=== PATIENT | male | born 1965 | race Caucasian/White ===

== ENCOUNTER 2019-12-11 13:51 | Inpatient (IN) | payer MEDICAID ==
--- NOTE | 2019-12-11 14:39 | XRAY Report ---
PROCEDURE: Chest 1 View X-Ray INDICATIONS: Chest pain TECHNIQUE: One view of the chest was acquired. COMPARISON: None FINDINGS: Surgical changes and devices: None. Lungs and pleura: No pleural effusions or pneumothorax. Lungs are clear. Mediastinum: Mediastinal contours appear normal. Heart size is normal. Bones and chest wall: No suspicious bony lesions. Overlying soft tissues appear unremarkable. IMPRESSION: No acute cardiopulmonary process demonstrated radiographically. Reviewed by: Scott Quinteros MD on 12/11/2019 2:37 PM PDT Approved by: Scott Quinteros MD on 12/11/2019 2:37 PM PDT Station ID: [id number]
[2019-12-11 14:57] LABS: BASOPHILS % (AUTO) 0.5 %; EOSINOPHILS # (AUTO) 0.2 10^3/uL (0.0-0.7); EOSINOPHILS % (AUTO) 1.9 %; HGB - HEMOGLOBIN 15.4 g/dL (14.0-18.0); LYMPHOCYTES # (AUTO) 1.5 10^3/uL (1.5-3.5); LYMPHOCYTES % (AUTO) 18.4 %; MEAN CORPUSCULAR HEMOGLOBIN 30.6 pg (27.0-31.0); MEAN CORPUSCULAR HGB CONC 35.2 g/dL (32.0-36.0); MEAN CORPUSCULAR VOLUME 86.9 fL (80.0-94.0); MEAN PLATELET VOLUME 10.7 fL (7.4-11.4); MONOCYTES # (AUTO) 0.9 10^3/uL (0.0-1.0); MONOCYTES % (AUTO) 10.8 %; NEUTROPHILS # (AUTO) 5.4 10^3/uL (1.5-6.6); PLT - PLATELET COUNT 310 10^3/uL (130-450); RED BLOOD COUNT 5.04 10^6/uL (4.70-6.10); RED CELL DISTRIBUTION WIDTH 11.9 % (12.0-15.0)
[2019-12-11 14:59] LABS: ALBUMIN 4.6 g/dL (3.2-5.5); ALBUMIN/GLOBULIN RATIO 1.4 (1.0-2.2); BILIRUBIN,TOTAL 0.9 mg/dL (0.2-1.0); CALCIUM 9.7 mg/dL (8.5-10.3); CREATININE 1.1 mg/dL (0.6-1.2)
[2019-12-11] MEDS ORDERED: ONDANSETRON 4 MG/2 ML VIAL IVP STA (15:05)
[2019-12-11] MEDS ORDERED: HYDROmorphone 1 MG/ML CARPUJECT IVP STA (15:05)
--- NOTE | 2019-12-11 15:15 | ED Physician Documentation ---
History of Present Illness - Stated complaint Stated Complaint: CP,FACE/HANDS NUMB,ABD PX - Chief complaint Chief Complaint: Cardiac - History of Present Illness Timing: Prior to arrival - Additonal information Additional information: 54-year-old male presents to the emergency department in extreme anguish. He reports that he developed sudden onset chest pain about 1130. It began at rest. He states that it is now in his abdomen. He is writhing in the bed and crying due to the pain. He has no history of similar. He denies a history of hypertension or tobacco or alcohol use. He denies any cardiac history, denies taking any medications prescribed by provider Review of Systems Constitutional: reports: Reviewed and negative Cardiac: reports: Chest pain / pressure GI: reports: Abdominal Pain, Nausea. denies: Constipation, Diarrhea, Hematemesis, Bloody / black stool : reports: Reviewed and negative Skin: reports: Reviewed and negative Musculoskeletal: reports: Reviewed and negative PD PAST MEDICAL HISTORY - Past Medical History Past Medical History: No - Past Surgical History Past Surgical History: Yes - Allergies Allergies/Adverse Reactions: Allergies Allergy/AdvReac Type Severity Reaction Status Date / Time No Known Drug Allergies Allergy Verified 12/11/19 14:01 - Social History Does the pt smoke?: No Smoking Status: Never smoker Does the pt drink ETOH?: No Does the pt have substance abuse?: Yes Substance Use and Type: Marijuana - Immunizations Immunizations are current?: No - POLST Patient has POLST: No PD ED PE EXPANDED - General General: Alert, In Pain, In distress - Neck Neck: Supple w/out meningeal sx, No tenderness - Cardiac Cardiac: Luc, Radial strong equal, Pedal strong equal, Cap refill < 2 sec. No: Murmur Present - Respiratory Respiratory: Clear to ausultation severiano. No: Distress, Labored - Abdomen Abdomen: Tender to palpation, Generalized/diffuse (Generally diffuse abdominal tenderness without guarding. Mild rebound) - Extremities Extremities: Normal - Neuro Neuro: Alert and Oriented X 3, CNII-XII intact, Normal finger nose, Normal speech - GCS Eye Opening: Spontaneous Motor: Obeys Commands Verbal: Oriented Total: 15 Results - Vitals Vitals: Vital Signs - 24 hr 12/11/19 12/11/19 12/11/19 13:54 14:32 15:50 Temperature 36.4 C L 36.4 C L Heart Rate 44 L 78 39 L Respiratory 20 18 10 L Rate Blood Pressure 138/108 H 164/102 H 179/94 H O2 Saturation 100 100 100 12/11/19 12/11/19 12/11/19 15:55 16:09 16:34 Temperature 36.5 C Heart Rate 37 L 40 L 40 L Respiratory 14 12 15 Rate Blood Pressure 199/107 H 182/90 H 202/101 H O2 Saturation 99 100 99 12/11/19 12/11/19 12/11/19 16:46 16:51 16:56 Temperature Heart Rate 39 L 45 L 40 L Respiratory 14 12 Rate Blood Pressure 205/100 H 193/115 H 211/102 H O2 Saturation 100 100 12/11/19 12/11/19 12/11/19 17:05 17:20 17:35 Temperature Heart Rate 40 L 40 L 42 L Respiratory Rate Blood Pressure 177/96 H 178/96 H 160/92 H O2 Saturation Oxygen O2 Source Nasal cannula - EKG (time done) 1411 Rate: Rate (enter#) (41) Rhythm: Sinus bradycardia [place]: Normal Intervals: Normal PA QRS: Normal Ischemia: Normal ST segments Compare to prior EKG: Old EKG unavailable Computer interpretation: Agree with computer - Labs Labs: Laboratory Tests 12/11/19 12/11/19 12/11/19 14:36 14:36 14:36 WBC 8.0 RBC 5.04 Hgb 15.4 Hct 43.8 MCV 86.9 MCH 30.6 MCHC 35.2 RDW 11.9 L Plt Count 310 MPV 10.7 Neut # (Auto) 5.4 Lymph # (Auto) 1.5 [place] # (Auto) 0.9 Eos # (Auto) 0.2 Baso # (Auto) 0.0 Absolute Nucleated RBC 0.00 Nucleated RBC % 0.0 Sodium 138 Potassium 3.5 Chloride 103 Carbon Dioxide 23 Anion Gap 12.0 BUN 16 Creatinine 1.1 Estimated GFR (MDRD) 70 L Glucose 129 H Lactic Acid Calcium 9.7 Total Bilirubin 0.9 AST 28 ALT 25 Alkaline Phosphatase 55 Troponin I High Sens 4.7 Total Protein 8.0 Albumin 4.6 Globulin 3.4 Albumin/Globulin Ratio 1.4 Lipase 28 12/11/19 12/11/19 16:03 16:03 WBC RBC Hgb Hct MCV MCH MCHC RDW Plt Count MPV Neut # (Auto) Lymph # (Auto) [place] # (Auto) Eos # (Auto) Baso # (Auto) Absolute Nucleated RBC Nucleated RBC % Sodium Potassium Chloride Carbon Dioxide Anion Gap BUN Creatinine Estimated GFR (MDRD) Glucose Lactic Acid 1.5 Calcium Total Bilirubin AST ALT Alkaline Phosphatase Troponin I High Sens 4.8 Total Protein Albumin Globulin Albumin/Globulin Ratio Lipase - Rads (name of study) CT chest/angio Radiology: Final report received (No evidence of pulmonary embolism or acute finding in the chest) CT abd/pelvis Radiology: Final report received (Distended gastric lumen which could represent low-grade gastroparesis. No gross gastric wall thickening. Questionable mild transverse descending colon wall thickening which may be due to under distention . Low-grade colitis not excluded. No abscess collection free fluid or air.) PD MEDICAL DECISION MAKING - ED course Complexity details: reviewed old records, reviewed results, considered differential, d/w patient, d/w internet consultant (Claudy ) ED course: This is an acutely ill 54-year-old male that presents with sudden onset chest/epigastric abdominal pain. When he presented to the emergency department he was noted to be initially bradycardic with heart rate in the 40s. Initial concern at presentation was for aortic dissection. CT angios the chest did not show any acute findings within the chest. Reassuringly his blood count and serum chemistries were all essentially normal. His EKG remained bradycardic without any ischemic changes. 2 high-sensitivity troponins were negative. His lactic acid was not elevated. CT of the abdomen showed a very fluid-filled distended stomach. These findings were discussed with Dr. Loco of surgery. He feels it the sudden onset of the pain likely represents biliary colic. An abdominal ultrasound is pending. However he could not take the patient to surgery until the hypertension and bradycardia are addressed therefore he requests medical admission to the hospital. I have spoken with the day hospitalist Dr. Vazquez who agrees to see and evaluate the patient. Departure - Departure Disposition: ED Place in Observation Clinical Impression: Epigastric pain, Bradycardia Hypertension Qualifiers: Hypertension type: unspecified Qualified Code(s): I10 - Essential (primary) hypertension
[2019-12-11] MEDS ORDERED: IOVERSOL 320 100 ML VIAL IVP ONE ×2 (15:16→17:49)
--- NOTE | 2019-12-11 15:57 | CT Report ---
PROCEDURE: ANGIO CHEST W/WO INDICATIONS: Acute onset chest pain which radiates to the back CONTRAST: IV CONTRAST: Optiray 320 ml: 100 PO CONTRAST: *NO PO CONTRAST TECHNIQUE: After the administration of intravenous contrast, 2 mm thick sections acquired from the pulmonary api odilia to the posterior costophrenic angles. 3-dimensional maximum intensity projection (MIP) coronal a nd sagittal reformats were then acquired through the thorax. For radiation dose reduction, the follow ing was used: automated exposure control, adjustment of mA and/or kV according to patient size. COMPARISON: None FINDINGS: Image quality: Limited due to motion artifact and suboptimal contrast bolus timing. Pulmonary arteries: No central pulmonary filling defect identified. Normal caliber main pulmonary kei nk. Lungs and pleura: Respiratory motion artifact limits detailed evaluation of the lung parenchyma. No c onsolidation. No significant pleural abnormality. Mediastinum: Normal heart size. No pericardial effusion. No findings of right heart strain. Thoracic aorta is unremarkable. No threshold enlarged mediastinal or hilar lymph node. Bones and chest wall: No suspicious lytic or blastic osseous lesion. Partially visualized thyroid is within normal limits. No threshold and large supraclavicular or axillary lymph node. IMPRESSION: No evidence of pulmonary embolism or other acute finding in the chest. Reviewed by: Scott Quinteros MD on 12/11/2019 3:55 PM PDT Approved by: Scott Quinteros MD on 12/11/2019 3:55 PM PDT Station ID: [id number]
--- NOTE | 2019-12-11 16:03 | CT Report ---
PROCEDURE: Abdomen/Pelvis W INDICATIONS: acute chest abdominal pain CONTRAST: IV CONTRAST: Optiray 320 ml: 100 PO CONTRAST: *NO PO CONTRAST TECHNIQUE: After the administration of IV contrast, 5 mm thick sections acquired from the diaphragms to the symp hysis. 5 mm thick coronal and sagittal reformats were acquired. For radiation dose reduction, the f ollowing was used: automated exposure control, adjustment of mA and/or kV according to patient size. COMPARISON: None. FINDINGS: Image quality: Excellent. ABDOMEN: Lung bases: Bibasilar dependent atelectasis are noted posteriorly. Heart size is normal. Solid organs: Liver and spleen are normal in size and enhancement. Gallbladder is within normal marte its Biliary system is non dilated. Pancreas enhances normally. No adrenal nodules. Kidneys demons trate normal size and enhancement, without hydronephrosis. Peritoneum and bowel: There is a small hiatal hernia. Fluid distended gastric lumen is seen. No gross gastric wall thickening. No gross small bowel wall thickening. There is suggestion of mild wall thic kening involving transverse colon and proximal to mid descending colon concerning for low-grade colit is. Colonic diverticulosis is seen, no CT evidence of acute diverticulitis. No free fluid or free air .. Nodes and vessels: No retroperitoneal or mesenteric adenopathy by size criteria. Aorta and inferior vena cava are normal in size. Miscellaneous: No ventral hernias. PELVIS: Genitourinary: Bladder wall thickness is normal. Miscellaneous: No inguinal hernias or adenopathy. Bones: No suspicious bony lesions. No vertebral body compression fractures. IMPRESSION: 1. Fluid distended gastric lumen, which could represent low-grade gastroparesis. No gross gastric wal l thickening or discrete gastric wall mass. 2. Questionable mild transverse and descending colon wall thickening, which may be due to under diste ntion. Low-grade colitis cannot be excluded. No abscess collection. No free fluid or free air. Coloni c diverticulosis without evidence of acute diverticulitis. 3. No renal stone or hydronephrosis. Reviewed by: Ezekiel Singer MD on 12/11/2019 4:02 PM PDT Approved by: Ezekiel Singer MD on 12/11/2019 4:02 PM PDT Station ID: [id number]
[2019-12-11] MEDS ORDERED: ENALAPRILAT 1.25 MG/ML VIAL IVP STA (16:31)
--- NOTE | 2019-12-11 18:05 | HISTORY & PHYSICAL EXAMINATION ---
Chief Complaint - Chief Complaint Chief Complaint: severe epigastric pain earlier today Abdominal Pain HPI - History Obtained From History obtained from: Patient Exam limitations: No limitations - History of Present Illness Severity at the worst: Severe Pain Quality: Aching, Other (pressure) Context-Pain started w/: Rest Timing: Abrupt onset Duration: Hours: (better after a few hours and pain medication. not resolved) Associated symptoms: Other (he denies nausea) Social & Family Hx - Social History Does the pt smoke?: No Smoking Status: Never smoker Does the pt drink ETOH?: No Does the pt have substance abuse?: Yes Substance Use and Type: Marijuana - POLST Patient has POLST: No Meds/Allgy - Allergies Allergies/Adverse Reactions: Allergies Allergy/AdvReac Type Severity Reaction Status Date / Time No Known Drug Allergies Allergy Verified 12/11/19 14:01 Review of Systems - Constitutional Constitutional: reports: Fatigue - Other Findings Other Findings: he states he never sees a doctor, not for 40 years and until this afternoon he had been well 10 pt ros otherwise unremarkable Exam - Vital Signs Reviewed Vital Signs: Yes Vital Signs: Vital Signs x48h Temp Pulse Resp BP Pulse Ox 12/11/19 17:35 42 L 160/92 H 12/11/19 17:20 40 L 178/96 H 12/11/19 17:05 40 L 177/96 H 12/11/19 16:56 40 L 211/102 H 12/11/19 16:51 45 L 12 193/115 H 100 12/11/19 16:46 39 L 14 205/100 H 100 12/11/19 16:34 40 L 15 202/101 H 99 12/11/19 16:09 36.5 C 40 L 12 182/90 H 100 12/11/19 15:55 37 L 14 199/107 H 99 12/11/19 15:50 39 L 10 L 179/94 H 100 12/11/19 14:32 36.4 C L 78 18 164/102 H 100 12/11/19 13:54 36.4 C L 44 L 20 138/108 H 100 - Physical Exam General Appearance: positive: No acute distress, Alert Eyes Bilateral: positive: Normal inspection, PERRL, EOMI, No scleral icterus ENT: positive: No signs of dehydration Neck: positive: No JVD Respiratory: positive: No respiratory distress Cardiovascular: positive: Bradycardia (into the 30's) Abdomen: positive: Non-tender, No distention Neurologic/Psychiatric: positive: Oriented x3 Results - Lab Results Fish Bones: 12/11/19 14:36 12/11/19 14:36 Other Lab Results: Lab Results x24hrs 12/11/19 12/11/19 12/11/19 Range/Units 16:03 16:03 14:36 WBC (4.8-10.8) x10^3/uL RBC (4.70-6.10) 10^6/uL Hgb (14.0-18.0) g/dL Hct (42.0-52.0) % MCV (80.0-94.0) fL MCH (27.0-31.0) pg MCHC (32.0-36.0) g/dL RDW (12.0-15.0) % Plt Count (130-450) 10^3/uL MPV (7.4-11.4) fL Neut # (Auto) (1.5-6.6) 10^3/uL Lymph # (Auto) (1.5-3.5) 10^3/uL [place] # (Auto) (0.0-1.0) 10^3/uL Eos # (Auto) (0.0-0.7) 10^3/uL Baso # (Auto) (0.0-0.1) 10^3/uL Absolute Nucleated RBC x10^3/uL Nucleated RBC % /100WBC Sodium (135-145) mmol/L Potassium (3.5-5.0) mmol/L Chloride (101-111) mmol/L Carbon Dioxide (21-32) mmol/L Anion Gap (6-13) BUN (6-20) mg/dL Creatinine (0.6-1.2) mg/dL Estimated GFR (MDRD) (>89) Glucose (70-100) mg/dL Lactic Acid 1.5 (0.5-2.2) mmol/L Calcium (8.5-10.3) mg/dL Total Bilirubin (0.2-1.0) mg/dL AST (10-42) IU/L ALT (10-60) IU/L Alkaline Phosphatase (42-121) IU/L Troponin I High Sens 4.8 4.7 (2.3-19.7) ng/L Total Protein (6.7-8.2) g/dL Albumin (3.2-5.5) g/dL Globulin (2.1-4.2) g/dL Albumin/Globulin Ratio (1.0-2.2) Lipase (22-51) U/L 12/11/19 12/11/19 Range/Units 14:36 14:36 WBC 8.0 (4.8-10.8) x10^3/uL RBC 5.04 (4.70-6.10) 10^6/uL Hgb 15.4 (14.0-18.0) g/dL Hct 43.8 (42.0-52.0) % MCV 86.9 (80.0-94.0) fL MCH 30.6 (27.0-31.0) pg MCHC 35.2 (32.0-36.0) g/dL RDW 11.9 L (12.0-15.0) % Plt Count 310 (130-450) 10^3/uL MPV 10.7 (7.4-11.4) fL Neut # (Auto) 5.4 (1.5-6.6) 10^3/uL Lymph # (Auto) 1.5 (1.5-3.5) 10^3/uL [place] # (Auto) 0.9 (0.0-1.0) 10^3/uL Eos # (Auto) 0.2 (0.0-0.7) 10^3/uL Baso # (Auto) 0.0 (0.0-0.1) 10^3/uL Absolute Nucleated RBC 0.00 x10^3/uL Nucleated RBC % 0.0 /100WBC Sodium 138 (135-145) mmol/L Potassium 3.5 (3.5-5.0) mmol/L Chloride 103 (101-111) mmol/L Carbon Dioxide 23 (21-32) mmol/L Anion Gap 12.0 (6-13) BUN 16 (6-20) mg/dL Creatinine 1.1 (0.6-1.2) mg/dL Estimated GFR (MDRD) 70 L (>89) Glucose 129 H (70-100) mg/dL Lactic Acid (0.5-2.2) mmol/L Calcium 9.7 (8.5-10.3) mg/dL Total Bilirubin 0.9 (0.2-1.0) mg/dL AST 28 (10-42) IU/L ALT 25 (10-60) IU/L Alkaline Phosphatase 55 (42-121) IU/L Troponin I High Sens (2.3-19.7) ng/L Total Protein 8.0 (6.7-8.2) g/dL Albumin 4.6 (3.2-5.5) g/dL Globulin 3.4 (2.1-4.2) g/dL Albumin/Globulin Ratio 1.4 (1.0-2.2) Lipase 28 (22-51) U/L - Diagnostic Imaging Results Diagnostic Imaging Results: positive: Final report reviewed, Read independently (possible non calcified gallstone no gallbladder inflammation diverticulosis without inflammation. no signs of peptic ulcer disease) Impression/Plan - Problem List Problem List: severe epigastric pain earlier today consistent with biliary cholic bradycardia into the 30's he is feeling improved. I recommend abdominal ultrasound for possible gallstones if his pain is controlled and he is able to take clears well and he is cleared by medicine he may go home He is not a surgical candidate until cleared/ worked up for his bradycardia he does not have an acute abdomen requiring urgent surgery will follow up on his ultrasound.
[2019-12-11] MEDS ORDERED: cloNIDine 0.1 MG PATCH TOP SCH (19:00)
[2019-12-11] MEDS ORDERED: ENALAPRILAT 1.25 MG/ML VIAL IVP SCH (19:00)
--- NOTE | 2019-12-11 19:41 | HISTORY & PHYSICAL EXAMINATION ---
Chief Complaint - Chief Complaint Chief Complaint: Chest pain, Abdominal pain History of Present Illness - Admitted From Admitted From:: [facility] ED - History Obtained From Records Reviewed: Yes History obtained from: Patient - History of Present Illness HPI Comment/Other: Patient is a 54-year-old male who presented to the ED with complaint of chest pain however when asked to point to the area of his pain, he points to his upper abdomen. Palpation to the area reproduces the pain. Started around 11:30 AM. He describes it as a pressure. He was just sitting around at home when the pain started. He had last eaten the night before. In the ED His blood pressure was as high as 193/84. He was also bradycardic with heart rate of 40. For concern about aortic dissection he had a CT angiogram of the chest done which did not show any acute findings within the chest. CT of the abdomen showed a very fluid filled distended stomach. This findings were discussed with Dr. Loco of general surgery. He thought the presentation likely represented biliary colic and advised for an abdominal ultrasound to be obtained. The patient also had troponins x2 done which were negative. He was given enalapril in the ED and presented for admission for further work-up and treatment. History - Past Medical History Other Past Medical History: Patient denies any medical history - Past Surgical History Other past surgical history: Patient denies any surgical history - Family & Social History Family History: Father: [place] Living Situation: Alone, With family (mother) - POLST Patient has POLST: No POLST Status: Full Code Meds/Allgy - Allergies Allergies/Adverse Reactions: Allergies Allergy/AdvReac Type Severity Reaction Status Date / Time No Known Drug Allergies Allergy Verified 12/11/19 14:01 Review of Systems - Constitutional Constitutional: denies: Fever, Chills, Malaise - Eyes Eyes: denies: Pain - Ears, Nose & Throat Ears, Nose & Throat: denies: Ear pain, Sore throat - Cardiovascular Cariovascular: denies: Irregular heart rate, Palpitations, Chest pain, Lightheadedness, Exertional dyspnea, Decr. exercise tolerance - Respiratory Respiratory: denies: Cough, Wheezing, SOB at rest, SOB with exertion - Gastrointestinal Gastrointestinal: reports: Abdominal pain. denies: Constipation, Nausea, Vomiting, Coffee grounds emesis, Reflux/heartburn - Genitourinary Genitourinary: denies: Dysuria, Frequency, Urgency, Hematuria - Musculoskeletal Musculoskeletal: denies: Muscle pain, Back pain, Muscle aches - Integumentary Integumentary: denies: Rash, Pruritis, Lesions, Dryness - Neurological Neurological: denies: General weakness, Headache, Dizziness - Psychiatric Psychiatric: denies: Depression, Anxiety - Endocrine Endocrine: denies: Polyuria, Polydypsia - Hematologic/Lymphatic Hematologic/Lymphatic: denies: Anemia, Bruising, Petechiae Prior Level of Functionality: Patient is independent of activities of daily living Exam - Vital Signs Vital Signs: Vital Signs x48h Temp Pulse Pulse Resp BP BP Pulse Ox 12/11/19 19:20 42 L 185/97 H 12/11/19 18:57 36.7 C 43 L 19 157/95 H 99 12/11/19 18:38 36.6 C 40 L 12 192/94 H 98 12/11/19 17:50 36.6 C 42 L 13 185/96 H 98 12/11/19 17:35 42 L 160/92 H 12/11/19 17:20 40 L 178/96 H 12/11/19 17:05 40 L 177/96 H 12/11/19 16:56 40 L 211/102 H 12/11/19 16:51 45 L 12 193/115 H 100 12/11/19 16:46 39 L 14 205/100 H 100 12/11/19 16:34 40 L 15 202/101 H 99 12/11/19 16:09 36.5 C 40 L 12 182/90 H 100 12/11/19 15:55 37 L 14 199/107 H 99 12/11/19 15:50 39 L 10 L 179/94 H 100 12/11/19 14:32 36.4 C L 78 18 164/102 H 100 12/11/19 13:54 36.4 C L 44 L 20 138/108 H 100 - Physical Exam General Appearance: positive: Alert, Moderate distress, Severe distress Eyes Bilateral: positive: PERRL, EOMI ENT: positive: Dry mucous membranes Neck: positive: No JVD, Trachea midline Respiratory: positive: Chest non-tender, No respiratory distress, Breath sounds nml. negative: Wheezes, Rales, Rhonchi Cardiovascular: positive: Bradycardia Abdomen: positive: No organomegaly, Nml bowel sounds, No distention, Tenderness, Guarding Back: positive: Nml inspection Skin: positive: Color nml, No rash, Warm, Dry Extremities: positive: Non-tender, Full ROM, Nml appearance, No pedal edema Neurologic/Psychiatric: positive: Oriented x3, Motor nml Conclusion/Plan - Problem List (1) Cholecystitis Conclusion/Plan: Abdominal ultrasound showed stones in the gallbladder and some pericholecystic fluid. Patient is n.p.o. except for meds, ice chips and sips. Pain management with oxycodone and morphine as needed. IV hydration with normal saline. Dr. Loco with general surgery is on consult. (2) Hypertension Conclusion/Plan: Uncontrolled. This could also be elevated by pain related to cholecystitis. Patient has a 0.1 mg clonidine patch on. Enalaprilat 1.25 mg IV every 6 hours ordered. Qualifiers: Hypertension type: unspecified Qualified Code(s): I10 - Essential (primary) hypertension (3) Bradycardia Conclusion/Plan: Etiology undetermined. Patient asymptomatic. We will continue to monitor. If needed will administer atropine. - Lab Results Fish Bones: 12/11/19 14:36 12/11/19 14:36 Core Measures - Anticipated LOS I expect patient to be DC'd or transferred within 96 hours.: Yes - DVT/VTE - Prophylaxis VTE/DVT Device ordered at admit?: Yes VTE/DVT Prophylaxis med ordered at admit?: Yes
[2019-12-11] MEDS: ENALAPRILAT 1.25 MG/ML VIAL IVP SCH (21:08)
[2019-12-11] MEDS ORDERED: MORPHINE 2 MG/ML CARPUJECT IVP PRN (21:43)
[2019-12-11] MEDS ORDERED: SODIUM CHLORIDE FLUSH 0.9% 10 ML SYRINGE IVP PRN (22:01)
[2019-12-11] MEDS ORDERED: oxyCODONE 5 MG TABLET PO PRN (22:01)
[2019-12-11] MEDS ORDERED: ONDANSETRON 4 MG/2 ML VIAL IVP PRN (22:01)
[2019-12-11] MEDS ORDERED: ACETAMINOPHEN 325 MG TABLET PO PRN (22:01)
[2019-12-11] MEDS: SODIUM CHLORIDE 0.9% 1,000 ML IV SCH (22:41)
[2019-12-12] MEDS: SODIUM CHLORIDE FLUSH 0.9% 10 ML SYRINGE IVP SCH ×2 (00:04→11:07)
[2019-12-12 01:15] LABS: MUDS CUTOFF CONCENTRATIONS CUTOFF CONC BELOW:
[2019-12-12 01:16] LABS: BILIRUBIN,URINE NEGATIVE (NEGATIVE); GLUCOSE, URINE (UA) NEGATIVE (NEGATIVE); KETONES,URINE (UA) 15 mg/dL (NEGATIVE); LEUKOCYTE ESTERASE, URINE NEGATIVE (NEGATIVE); NITRITE,URINE NEGATIVE (NEGATIVE); OCCULT BLOOD,URINE TRACE-INTA (NEGATIVE); PROTEIN,URINE NEGATIVE (NEGATIVE); UROBILINOGEN,URINE 0.2 (NORMAL) E.U./dL (NORMAL)
[2019-12-12 01:17] LABS: CLARITY,URINE CLEAR (CLEAR)
[2019-12-12 01:26] LABS: AMPHETAMINE SCREEN,URINE POSITIVE (NEGATIVE); BENZODIAZEPINES SCREEN, URINE NEGATIVE (NEGATIVE); COCAINE SCREEN URINE NEGATIVE (NEGATIVE); METHADONE SCREEN, URINE NEGATIVE (NEGATIVE); METHAMPHETAMINES SCREEN, URINE POSITIVE (NEGATIVE); OPIATE SCREEN, URINE POSITIVE (NEGATIVE); OXYCODONE SCREEN, URINE NEGATIVE (NEGATIVE); PROPOXYPHENE SCREEN, URINE NEGATIVE (NEGATIVE); TRICYCLIC ANTIDEPRESSANT,URINE NEGATIVE (NEGATIVE)
[2019-12-12] MEDS: ENALAPRILAT 1.25 MG/ML VIAL IVP SCH ×2 (03:33→11:07)
[2019-12-12] MEDS: SODIUM CHLORIDE 0.9% 1,000 ML IV SCH (05:57)
[2019-12-12 05:59] LABS: BASOPHILS % (AUTO) 0.3 %; EOSINOPHILS # (AUTO) 0.2 10^3/uL (0.0-0.7); EOSINOPHILS % (AUTO) 2.3 %; HGB - HEMOGLOBIN 14.1 g/dL (14.0-18.0); LYMPHOCYTES # (AUTO) 1.4 10^3/uL (1.5-3.5); LYMPHOCYTES % (AUTO) 13.9 %; MEAN CORPUSCULAR HEMOGLOBIN 30.8 pg (27.0-31.0); MEAN CORPUSCULAR HGB CONC 34.7 g/dL (32.0-36.0); MEAN CORPUSCULAR VOLUME 88.6 fL (80.0-94.0); MEAN PLATELET VOLUME 10.1 fL (7.4-11.4); MONOCYTES # (AUTO) 1.5 10^3/uL (0.0-1.0); MONOCYTES % (AUTO) 14.2 %; PLT - PLATELET COUNT 251 10^3/uL (130-450); RED BLOOD COUNT 4.58 10^6/uL (4.70-6.10); RED CELL DISTRIBUTION WIDTH 12.3 % (12.0-15.0); WHITE BLOOD COUNT 10.2 x10^3/uL (4.8-10.8)
[2019-12-12 06:09] LABS: CALCIUM 8.5 mg/dL (8.5-10.3); CREATININE 0.9 mg/dL (0.6-1.2)
[2019-12-12] MEDS ORDERED: PANTOPRAZOLE 40 MG VIAL IVP SCH (07:00)
[2019-12-12] MEDS ORDERED: POTASSIUM CHLOR 10 MEQ/100 ML 10 MEQ/100 ML BAG IV SCH (08:00)
--- NOTE | 2019-12-12 08:37 | PROVIDER PROGRESS NOTE ---
Subjective - Prog Note Date Prog Note Date: 12/12/19 - Subjective Pt reports feeling: Improved (he states his abdominal pain is much improved to gone. denies nausea) Objective - Vital Signs/Intake & Output Vital Signs: Vital Signs x48h Temp Pulse Pulse Resp BP Pulse Ox 12/12/19 04:15 51 L 18 135/78 H 97 12/12/19 04:00 51 L 129/80 97 12/12/19 03:45 50 L 123/74 99 12/12/19 03:42 51 L 134/76 H 12/12/19 03:37 51 L 134/79 H 12/12/19 03:32 36.4 C L 50 L 16 132/78 H 97 Intake & Output: Intake & Output 12/09/19 12/10/19 12/11/19 12/12/19 23:59 23:59 23:59 23:59 Intake Total 1000 Output Total 750 Balance 250 - Objective General Appearance: positive: No acute distress, Alert Eyes Bilateral: positive: Normal inspection, PERRL, EOMI, No scleral icterus ENT: positive: No signs of dehydration Neck: positive: No JVD Respiratory: positive: No respiratory distress Abdomen: positive: Non-tender, No distention Neurologic/Psychiatric: positive: Oriented x3 - Lab Results Fish Bones: 12/12/19 05:55 12/12/19 05:55 Other Labs: Lab Results x24hrs 12/12/19 12/12/19 12/12/19 Range/Units 05:55 05:55 05:55 WBC 10.2 (4.8-10.8) x10^3/uL RBC 4.58 L (4.70-6.10) 10^6/uL Hgb 14.1 (14.0-18.0) g/dL Hct 40.6 L (42.0-52.0) % MCV 88.6 (80.0-94.0) fL MCH 30.8 (27.0-31.0) pg MCHC 34.7 (32.0-36.0) g/dL RDW 12.3 (12.0-15.0) % Plt Count 251 (130-450) 10^3/uL MPV 10.1 (7.4-11.4) fL Neut # (Auto) 7.0 H (1.5-6.6) 10^3/uL Lymph # (Auto) 1.4 L (1.5-3.5) 10^3/uL [place] # (Auto) 1.5 H (0.0-1.0) 10^3/uL Eos # (Auto) 0.2 (0.0-0.7) 10^3/uL Baso # (Auto) 0.0 (0.0-0.1) 10^3/uL Absolute Nucleated RBC 0.00 x10^3/uL Nucleated RBC % 0.0 /100WBC Sodium 135 (135-145) mmol/L Potassium 3.3 L (3.5-5.0) mmol/L Chloride 103 (101-111) mmol/L Carbon Dioxide 25 (21-32) mmol/L Anion Gap 7.0 (6-13) BUN 9 (6-20) mg/dL Creatinine 0.9 (0.6-1.2) mg/dL Estimated GFR (MDRD) 88 L (>89) Glucose 126 H (70-100) mg/dL Lactic Acid (0.5-2.2) mmol/L Calcium 8.5 (8.5-10.3) mg/dL Total Bilirubin (0.2-1.0) mg/dL AST (10-42) IU/L ALT (10-60) IU/L Alkaline Phosphatase (42-121) IU/L Troponin I High Sens (2.3-19.7) ng/L Total Protein (6.7-8.2) g/dL Albumin (3.2-5.5) g/dL Globulin (2.1-4.2) g/dL Albumin/Globulin Ratio (1.0-2.2) Lipase (22-51) U/L TSH 0.52 (0.34-5.60) uIU/mL Urine Color Urine Clarity (CLEAR) Urine pH (5.0-7.5) PH Ur Specific [place] (1.002-1.030) Urine Protein (NEGATIVE) mg/dL Urine Glucose (UA) (NEGATIVE) mg/dL Urine Ketones (NEGATIVE) mg/dL Urine Occult Blood (NEGATIVE) Urine Nitrite (NEGATIVE) Urine Bilirubin (NEGATIVE) Urine Urobilinogen (NORMAL) E.U./dL Ur Leukocyte Esterase (NEGATIVE) Ur Microscopic Review Urine Culture Comments Urine Opiates Screen (NEGATIVE) Ur Oxycodone Screen (NEGATIVE) Urine Methadone Screen (NEGATIVE) Ur Propoxyphene Screen (NEGATIVE) Ur Barbiturates Screen (NEGATIVE) Ur Tricyclics Screen (NEGATIVE) Ur Phencyclidine Scrn (NEGATIVE) Ur Amphetamine Screen (NEGATIVE) U Methamphetamines Scrn (NEGATIVE) U Benzodiazepines Scrn (NEGATIVE) Urine Cocaine Screen (NEGATIVE) U Cannabinoids Screen (NEGATIVE) 12/12/19 12/12/19 12/12/19 Range/Units 05:55 00:15 00:15 WBC (4.8-10.8) x10^3/uL RBC (4.70-6.10) 10^6/uL Hgb (14.0-18.0) g/dL Hct (42.0-52.0) % MCV (80.0-94.0) fL MCH (27.0-31.0) pg MCHC (32.0-36.0) g/dL RDW (12.0-15.0) % Plt Count (130-450) 10^3/uL MPV (7.4-11.4) fL Neut # (Auto) (1.5-6.6) 10^3/uL Lymph # (Auto) (1.5-3.5) 10^3/uL [place] # (Auto) (0.0-1.0) 10^3/uL Eos # (Auto) (0.0-0.7) 10^3/uL Baso # (Auto) (0.0-0.1) 10^3/uL Absolute Nucleated RBC x10^3/uL Nucleated RBC % /100WBC Sodium (135-145) mmol/L Potassium (3.5-5.0) mmol/L Chloride (101-111) mmol/L Carbon Dioxide (21-32) mmol/L Anion Gap (6-13) BUN (6-20) mg/dL Creatinine (0.6-1.2) mg/dL Estimated GFR (MDRD) (>89) Glucose (70-100) mg/dL Lactic Acid (0.5-2.2) mmol/L Calcium (8.5-10.3) mg/dL Total Bilirubin (0.2-1.0) mg/dL AST (10-42) IU/L ALT (10-60) IU/L Alkaline Phosphatase (42-121) IU/L Troponin I High Sens 9.0 (2.3-19.7) ng/L Total Protein (6.7-8.2) g/dL Albumin (3.2-5.5) g/dL Globulin (2.1-4.2) g/dL Albumin/Globulin Ratio (1.0-2.2) Lipase (22-51) U/L TSH (0.34-5.60) uIU/mL Urine Color YELLOW Urine Clarity CLEAR (CLEAR) Urine pH 6.0 (5.0-7.5) PH Ur Specific [place] 1.020 (1.002-1.030) Urine Protein NEGATIVE (NEGATIVE) mg/dL Urine Glucose (UA) NEGATIVE (NEGATIVE) mg/dL Urine Ketones 15 H (NEGATIVE) mg/dL Urine Occult Blood TRACE-INTA (NEGATIVE) Urine Nitrite NEGATIVE (NEGATIVE) Urine Bilirubin NEGATIVE (NEGATIVE) Urine Urobilinogen 0.2 (NORMAL) (NORMAL) E.U./dL Ur Leukocyte Esterase NEGATIVE (NEGATIVE) Ur Microscopic Review NOT INDICATED Urine Culture Comments NOT INDICATED Urine Opiates Screen POSITIVE H (NEGATIVE) Ur Oxycodone Screen NEGATIVE (NEGATIVE) Urine Methadone Screen NEGATIVE (NEGATIVE) Ur Propoxyphene Screen NEGATIVE (NEGATIVE) Ur Barbiturates Screen NEGATIVE (NEGATIVE) Ur Tricyclics Screen NEGATIVE (NEGATIVE) Ur Phencyclidine Scrn NEGATIVE (NEGATIVE) Ur Amphetamine Screen POSITIVE H (NEGATIVE) U Methamphetamines Scrn POSITIVE H (NEGATIVE) U Benzodiazepines Scrn NEGATIVE (NEGATIVE) Urine Cocaine Screen NEGATIVE (NEGATIVE) U Cannabinoids Screen NEGATIVE (NEGATIVE) 12/11/19 12/11/19 12/11/19 Range/Units 16:03 16:03 14:36 WBC (4.8-10.8) x10^3/uL RBC (4.70-6.10) 10^6/uL Hgb (14.0-18.0) g/dL Hct (42.0-52.0) % MCV (80.0-94.0) fL MCH (27.0-31.0) pg MCHC (32.0-36.0) g/dL RDW (12.0-15.0) % Plt Count (130-450) 10^3/uL MPV (7.4-11.4) fL Neut # (Auto) (1.5-6.6) 10^3/uL Lymph # (Auto) (1.5-3.5) 10^3/uL [place] # (Auto) (0.0-1.0) 10^3/uL Eos # (Auto) (0.0-0.7) 10^3/uL Baso # (Auto) (0.0-0.1) 10^3/uL Absolute Nucleated RBC x10^3/uL Nucleated RBC % /100WBC Sodium (135-145) mmol/L Potassium (3.5-5.0) mmol/L Chloride (101-111) mmol/L Carbon Dioxide (21-32) mmol/L Anion Gap (6-13) BUN (6-20) mg/dL Creatinine (0.6-1.2) mg/dL Estimated GFR (MDRD) (>89) Glucose (70-100) mg/dL Lactic Acid 1.5 (0.5-2.2) mmol/L Calcium (8.5-10.3) mg/dL Total Bilirubin (0.2-1.0) mg/dL AST (10-42) IU/L ALT (10-60) IU/L Alkaline Phosphatase (42-121) IU/L Troponin I High Sens 4.8 4.7 (2.3-19.7) ng/L Total Protein (6.7-8.2) g/dL Albumin (3.2-5.5) g/dL Globulin (2.1-4.2) g/dL Albumin/Globulin Ratio (1.0-2.2) Lipase (22-51) U/L TSH (0.34-5.60) uIU/mL Urine Color Urine Clarity (CLEAR) Urine pH (5.0-7.5) PH Ur Specific [place] (1.002-1.030) Urine Protein (NEGATIVE) mg/dL Urine Glucose (UA) (NEGATIVE) mg/dL Urine Ketones (NEGATIVE) mg/dL Urine Occult Blood (NEGATIVE) Urine Nitrite (NEGATIVE) Urine Bilirubin (NEGATIVE) Urine Urobilinogen (NORMAL) E.U./dL Ur Leukocyte Esterase (NEGATIVE) Ur Microscopic Review Urine Culture Comments Urine Opiates Screen (NEGATIVE) Ur Oxycodone Screen (NEGATIVE) Urine Methadone Screen (NEGATIVE) Ur Propoxyphene Screen (NEGATIVE) Ur Barbiturates Screen (NEGATIVE) Ur Tricyclics Screen (NEGATIVE) Ur Phencyclidine Scrn (NEGATIVE) Ur Amphetamine Screen (NEGATIVE) U Methamphetamines Scrn (NEGATIVE) U Benzodiazepines Scrn (NEGATIVE) Urine Cocaine Screen (NEGATIVE) U Cannabinoids Screen (NEGATIVE) 12/11/19 12/11/19 Range/Units 14:36 14:36 WBC 8.0 (4.8-10.8) x10^3/uL RBC 5.04 (4.70-6.10) 10^6/uL Hgb 15.4 (14.0-18.0) g/dL Hct 43.8 (42.0-52.0) % MCV 86.9 (80.0-94.0) fL MCH 30.6 (27.0-31.0) pg MCHC 35.2 (32.0-36.0) g/dL RDW 11.9 L (12.0-15.0) % Plt Count 310 (130-450) 10^3/uL MPV 10.7 (7.4-11.4) fL Neut # (Auto) 5.4 (1.5-6.6) 10^3/uL Lymph # (Auto) 1.5 (1.5-3.5) 10^3/uL [place] # (Auto) 0.9 (0.0-1.0) 10^3/uL Eos # (Auto) 0.2 (0.0-0.7) 10^3/uL Baso # (Auto) 0.0 (0.0-0.1) 10^3/uL Absolute Nucleated RBC 0.00 x10^3/uL Nucleated RBC % 0.0 /100WBC Sodium 138 (135-145) mmol/L Potassium 3.5 (3.5-5.0) mmol/L Chloride 103 (101-111) mmol/L Carbon Dioxide 23 (21-32) mmol/L Anion Gap 12.0 (6-13) BUN 16 (6-20) mg/dL Creatinine 1.1 (0.6-1.2) mg/dL Estimated GFR (MDRD) 70 L (>89) Glucose 129 H (70-100) mg/dL Lactic Acid (0.5-2.2) mmol/L Calcium 9.7 (8.5-10.3) mg/dL Total Bilirubin 0.9 (0.2-1.0) mg/dL AST 28 (10-42) IU/L ALT 25 (10-60) IU/L Alkaline Phosphatase 55 (42-121) IU/L Troponin I High Sens (2.3-19.7) ng/L Total Protein 8.0 (6.7-8.2) g/dL Albumin 4.6 (3.2-5.5) g/dL Globulin 3.4 (2.1-4.2) g/dL Albumin/Globulin Ratio 1.4 (1.0-2.2) Lipase 28 (22-51) U/L TSH (0.34-5.60) uIU/mL Urine Color Urine Clarity (CLEAR) Urine pH (5.0-7.5) PH Ur Specific [place] (1.002-1.030) Urine Protein (NEGATIVE) mg/dL Urine Glucose (UA) (NEGATIVE) mg/dL Urine Ketones (NEGATIVE) mg/dL Urine Occult Blood (NEGATIVE) Urine Nitrite (NEGATIVE) Urine Bilirubin (NEGATIVE) Urine Urobilinogen (NORMAL) E.U./dL Ur Leukocyte Esterase (NEGATIVE) Ur Microscopic Review Urine Culture Comments Urine Opiates Screen (NEGATIVE) Ur Oxycodone Screen (NEGATIVE) Urine Methadone Screen (NEGATIVE) Ur Propoxyphene Screen (NEGATIVE) Ur Barbiturates Screen (NEGATIVE) Ur Tricyclics Screen (NEGATIVE) Ur Phencyclidine Scrn (NEGATIVE) Ur Amphetamine Screen (NEGATIVE) U Methamphetamines Scrn (NEGATIVE) U Benzodiazepines Scrn (NEGATIVE) Urine Cocaine Screen (NEGATIVE) U Cannabinoids Screen (NEGATIVE) Assessment/Plan - Problem List (1) Epigastric pain Impression: Clinically he had a severe episode of biliary cholic. He does have gallstones on ultrasound. he is much improved. From a surgery standpoint he may be discharged on a low fat diet and follow up in the surgery office [phone] He likely will need a primary care doctor and referral
--- NOTE | 2019-12-12 08:56 | Ultrasound Report ---
PROCEDURE: Abdomen Limited INDICATIONS: epigastricpain;eval biliarycolic TECHNIQUE: Real-time focused scanning was performed of the abdomen, with image documentation. COMPARISON: None FINDINGS: Liver is normal in size. Liver is diffusely echogenic likely representing fatty infiltration. Focal f atty sparing noted in the liver adjacent to the gallbladder fossa. Gallstones noted in the bladder. There is mild gallbladder wall thickening to 3.3 mm. Small amount of pericholecystic fluid noted. No sonographic Gordon sign reported. Biliary tree is nondilated. Common bile duct measures 3.3 mm. Right kidney is normal in size. No right-sided hydronephrosis. IMPRESSION: Cholelithiasis with gallbladder wall thickening and small amount of pericholecystic fluid suspicious for acute cholecystitis. Reviewed by: Isis Foreman MD, PhD on 12/12/2019 8:55 AM PDT Approved by: Isis Foreman MD, PhD on 12/12/2019 8:55 AM PDT Station ID: [id number]
[2019-12-12] MEDS ORDERED: POTASSIUM CHLORIDE 20 MEQ TABLET PO ONE (09:15)
--- NOTE | 2019-12-12 11:51 | PHARMACY PROGRESS NOTE ---
- Best Possible Medication History Admit Date and Time: 12/11/191801 Processed by: Pharmacy Medication History completed: Yes Patient Interview: Completed Secondary Source(s): Physician records (PATIENT INTERVIEWED BY PHARMACY. PATIENT CONFIRMS NO HOME MEDICATIONS), Pharmacy records, Insurance records As the person ultimately responsible for medication therapy, providers are able to order a medication from an existing home medication list in [facility] via the "Reconcile Routine" prior to Confirmation of that medication by director decision support. Such practice is discouraged except when the physician, in their clinical judgment, deems that a medical need exists for a medication without regard to previous use.
--- NOTE | 2019-12-12 12:25 | DISCHARGE SUMMARY ---
"Discharge Summary Admit Date: 12/11/19 Discharge Date: 12/12/19 Discharging Provider: Gildardo Garcia Primary Care Provider: Barbara PCP Code Status: Attempt Resuscitation Condition at Discharge: Stable Discharge Disposition: 01 Home, Self Care - DIAGNOSES Admission Diagnoses: Cholecystitis Hypertension Bradycardia Discharge Diagnoses with Status of Each Condition: Biliary colic - resolved. Hypertension - stable. Sinus bradycardia - stable. - HPI History of Present Illness: H&P per Dr. [place]: Patient is a 54-year-old male who presented to the ED with complaint of chest pain however when asked to point to the area of his pain, he points to his upper abdomen. Palpation to the area reproduces the pain. Started around 11:30 AM. He describes it as a pressure. He was just sitting around at home when the pain started. He had last eaten the night before. In the ED His blood pressure was as high as 193/84. He was also bradycardic with heart rate of 40. For concern about aortic dissection he had a CT angiogram of the chest done which did not show any acute findings within the chest. CT of the abdomen showed a very fluid filled distended stomach. This findings were discussed with Dr. Loco of general surgery. He thought the presentation likely represented biliary colic and advised for an abdominal ultrasound to be obtained. The patient also had troponins x2 done which were negative. He was given enalapril in the ED and presented for admission for further work-up and treatment. - CONSULTS | PROCEDURES Consultations: General Surgery Procedures: Abdominal ultrasound performed December 10 concerning for cholelithiasis with gallbladder wall thickening and small amount of pericholecystic fluid suspicious for acute cholecystitis. CTA of the chest was unremarkable and negative for pulmonary embolism. - HOSPITAL COURSE Hospital Course: Was admitted to the floor for possible cholecystitis. He was made n.p.o. and his pain was managed with morphine and oxycodone. He was hypertensive and this was managed with IV enalapril and a clonidine patch. He was evaluated by [facility] surgery the following morning who felt that this was not consistent with cholecystitis and there was no need for surgical intervention. They recommended discharge home and outpatient follow-up with general surgery. The patient reported being pain free and was tolerating a diet without any pain. He was discharged on amlodipine 2.5 mg daily given his blood pressure is elevated on admission but this may have been due to severe abdominal pain. He was also bradycardic during his hospitalization. His heart rate ranged from the 40s to 50s. This was a sinus bradycardia without evidence of heart block. His TSH within normal limits. An echocardiogram was obtained which was unremarkable. Given he is asymptomatic and denies any prior history of syncope, lightheadedness, dizziness, he was discharged home and asked to follow-up with a primary care provider. The patient was initially admitted as inpatient as it was felt he would need to be hospitalized for more than 2 midnights but he unexpectedly had a quick recovery and so he will be discharged after 1 midnight. - ALLERGIES Allergies/Adverse Reactions: Allergies Allergy/AdvReac Type Severity Reaction Status Date / Time No Known Drug Allergies Allergy Verified 12/11/19 14:01 - MEDICATIONS Home Medications: Ambulatory Orders Medication Instructions Recorded Confirmed amLODIPine [Norvasc] 2.5 mg PO DAILY #30 tablet 12/12/19 - PHYSICAL EXAM AT DISCHARGE General Appearance: positive: No acute distress, Alert Eyes Bilateral: positive: Normal inspection ENT: positive: ENT inspection nml Neck: positive: Nml inspection Respiratory: positive: No respiratory distress. negative: Wheezes, Rales Cardiovascular: positive: No murmur, Bradycardia. negative: Irregularly irregular, Tachycardia, Systolic murmur Abdomen: positive: Non-tender, Nml bowel sounds, No distention. negative: Tenderness, Guarding, Rebound Skin: positive: No rash, Warm, Dry Extremities: positive: Full ROM, No pedal edema Neurologic/Psychiatric: positive: Oriented x3, Motor nml. negative: Disoriented to person, Disoriented to place, Disoriented to time Physical Exam Other/Comments: Vital Signs - 24 hr 12/11/19 12/11/19 12/11/19 16:34 16:46 16:51 Temperature Heart Rate 40 L 39 L 45 L Heart Rate [ Brachial] Heart Rate [ Radial] Respiratory 15 14 12 Rate Blood Pressure 202/101 H 205/100 H 193/115 H Blood Pressure [Right Brachial artery] O2 Saturation 99 100 100 12/11/19 12/11/19 12/11/19 16:56 17:05 17:20 Temperature Heart Rate 40 L 40 L 40 L Heart Rate [ Brachial] Heart Rate [ Radial] Respiratory Rate Blood Pressure 211/102 H 177/96 H 178/96 H Blood Pressure [Right Brachial artery] O2 Saturation 12/11/19 12/11/19 12/11/19 17:35 17:50 18:38 Temperature 36.6 C 36.6 C Heart Rate 42 L 42 L 40 L Heart Rate [ Brachial] Heart Rate [ Radial] Respiratory 13 12 Rate Blood Pressure 160/92 H 185/96 H 192/94 H Blood Pressure [Right Brachial artery] O2 Saturation 98 98 12/11/19 12/11/19 12/11/19 18:57 19:20 20:17 Temperature 36.7 C Heart Rate Heart Rate [ Brachial] Heart Rate [ 43 L 42 L 44 L Radial] Respiratory 19 Rate Blood Pressure Blood Pressure 157/95 H 185/97 H 193/84 H [Right Brachial artery] O2 Saturation 99 100 12/11/19 12/11/19 12/11/19 21:09 21:30 22:03 Temperature Heart Rate Heart Rate [ Brachial] Heart Rate [ 44 L 48 L Radial] Respiratory Rate Blood Pressure Blood Pressure 184/93 H 188/91 H 175/97 H [Right Brachial artery] O2 Saturation 100 12/11/19 12/12/19 12/12/19 22:44 00:00 03:32 Temperature 36.7 C 36.4 C L Heart Rate Heart Rate [ Brachial] Heart Rate [ 46 L 48 L 50 L Radial] Respiratory 18 16 Rate Blood Pressure Blood Pressure 174/92 H 168/86 H 132/78 H [Right Brachial artery] O2 Saturation 100 98 97 12/12/19 12/12/19 12/12/19 03:37 03:42 03:45 Temperature Heart Rate Heart Rate [ Brachial] Heart Rate [ 51 L 51 L 50 L Radial] Respiratory Rate Blood Pressure Blood Pressure 134/79 H 134/76 H 123/74 [Right Brachial artery] O2 Saturation 99 12/12/19 12/12/19 12/12/19 04:00 04:15 08:00 Temperature 36.8 C Heart Rate Heart Rate [ 51 L 52 L Brachial] Heart Rate [ 51 L Radial] Respiratory 18 20 Rate Blood Pressure Blood Pressure 129/80 135/78 H 122/73 [Right Brachial artery] O2 Saturation 97 97 98 12/12/19 12/12/19 12/12/19 12:00 14:13 16:00 Temperature 36.9 C 36.9 C 37.1 C Heart Rate 52 L Heart Rate [ 51 L 51 L Brachial] Heart Rate [ Radial] Respiratory 18 18 18 Rate Blood Pressure Blood Pressure 121/80 104/61 [Right Brachial artery] O2 Saturation 99 95 98 Oxygen O2 Source Room air - LABS Result Diagrams: 12/12/19 05:55 12/12/19 05:55 - DIAGNOSTIC IMAGING Diagnostic Imaging Results: Final report reviewed - FOLLOW UP Follow Up: He has no primary care provider but was provided a list of available providers and it was suggested that he make an appointment for follow-up and to be referred to general surgery. I also asked him to return to the emergency department if he develops any fevers, chills, nausea, vomiting, abdominal pain or any syncope. - TIME SPENT Time Spent in Discharge (Minutes): 32"
--- NOTE | 2019-12-12 12:25 | Discharge Plan ---
Discharge Plan Problem Reviewed?: Yes Disposition: Home, Self Care Condition: Stable Prescriptions: amLODIPine [Norvasc] 2.5 mg PO DAILY #30 tablet Diet: Regular (Low fat diet.) Activity Restrictions: Activity as Tolerated Shower Restrictions: No Driving Restrictions: No Health Concerns: You were seen in the hospital because of severe abdominal pain. This is likely due to gallstones. You were evaluated by the surgeon and they do not believe he needs surgery given ear pain has resolved. Your heart rate has also been on the lower end of normal but you do not have any symptoms. An ultrasound of your heart was unremarkable. Your heart numbers were also normal. Plan of Treatment: Because your blood pressure has been elevated, it is recommended you take amlodipine for your blood pressure as prescribed. Care Goals: Please return to the emergency department if you develop any fevers, chills, nausea, vomiting, severe abdominal pain. Assessment: The patient expressed understanding of the treatment plan. Additional Instructions or Follow Up instructions: Commended that you follow-up with a primary care provider. It is recommended that you be referred to a general surgeon for follow-up as your gallbladder may need to be removed in the future if you develop repeat episodes of pain. No Smoking: If you smoke, Please STOP! Call for help.
[2019-12-12 17:39] VITALS: BP 116/68
[2019-12-13] MEDS ORDERED: amLODIPine 5 MG TABLET PO SCH (09:00)
== END 2019-12-12 18:00 | disposition home or self-care (01) | DRG 446 ==
LOC: ED 13:51 → MS2 18:02
PROVIDERS: ADMIT Internal Medicine; ATTEND Internal Medicine
DX: K80.60 Calculus of gallbladder and bile duct with cholecystitis, unspecified, without obstruction (principal); I10 Essential (primary) hypertension; R00.1 Bradycardia, unspecified
CPT/HCPCS: 36415; 71045; 71275; 74177; 76705; 80048; 80053; 80306; 81003; 83605; 83690; 84443; 84484; 85025; 93005; 93306; 96374; 96375; 99283; 99285; A9270; J1170; Q9967; 81001; 87086

== ENCOUNTER 2022-08-04 13:00 | Outpatient (CLI) | payer MEDICAID ==
--- NOTE | 2022-08-04 19:44 | XRAY Report ---
PROCEDURE: Chest 2 View X-Ray INDICATIONS: FATIGUE AND MALAISE, BRIGHT RED BLOOD PER RECTUM TECHNIQUE: 2 views of the chest were acquired. COMPARISON: 12/11/2019 FINDINGS: Surgical changes and devices: None. Lungs and pleura: Hyperinflation and chronic interstitial changes without focal infiltrate Mediastinum: Mediastinal contours appear normal. Heart size is normal. Bones and chest wall: No suspicious bony lesions. Overlying soft tissues appear unremarkable. IMPRESSION: Hyperinflation and chronic interstitial changes without acute cardiopulmonary findings Reviewed by: Hermes Jaquez MD on 08/04/2022 6:42 PM AKDT Approved by: Hermes Jaquez MD on 08/04/2022 6:42 PM AKDT Station ID: [id number]
== END 2022-08-04 13:15 | disposition home or self-care (01) ==
LOC: DI.N 13:00
PROVIDERS: ATTEND Registered Nurse
DX: R53.83 Other fatigue (principal); K62.5 Hemorrhage of anus and rectum; K62.89 Other specified diseases of anus and rectum; R07.89 Other chest pain; R53.81 Other malaise
CPT/HCPCS: 36415; 80053; 80061; 83036; 83721; 84153; 84443; 85025

== ENCOUNTER 2022-08-04 13:15 | Outpatient (CLI) | payer MEDICAID ==
[2022-08-04 17:57] LABS: BASOPHILS # (AUTO) 0.1 10^3/uL (0.0-0.1); BASOPHILS % (AUTO) 0.7 %; EOSINOPHILS # (AUTO) 0.4 10^3/uL (0.0-0.7); EOSINOPHILS % (AUTO) 5.2 %; HCT - HEMATOCRIT 48.8 % (42.0-52.0); HGB - HEMOGLOBIN 16.2 g/dL (14.0-18.0); LYMPHOCYTES # (AUTO) 2.2 10^3/uL (1.5-3.5); LYMPHOCYTES % (AUTO) 28.5 %; MEAN CORPUSCULAR HEMOGLOBIN 30.5 pg (27.0-31.0); MEAN CORPUSCULAR HGB CONC 33.2 g/dL (32.0-36.0); MEAN CORPUSCULAR VOLUME 91.9 fL (80.0-94.0); MEAN PLATELET VOLUME 12.1 fL (7.4-11.4); MONOCYTES # (AUTO) 0.9 10^3/uL (0.0-1.0); MONOCYTES % (AUTO) 11.4 %; NEUTROPHILS # (AUTO) 4.1 10^3/uL (1.5-6.6); NEUTROPHILS % (AUTO) 53.4 %; PLT - PLATELET COUNT 276 10^3/uL (130-450); RED BLOOD COUNT 5.31 10^6/uL (4.70-6.10); RED CELL DISTRIBUTION WIDTH 12.4 % (12.0-15.0); WHITE BLOOD COUNT 7.6 x10^3/uL (4.8-10.8)
[2022-08-04 18:16] LABS: ALBUMIN 4.1 g/dL (3.2-5.5); ALBUMIN/GLOBULIN RATIO 1.2 (1.0-2.2); ALKALINE PHOSPHATASE 62 IU/L (42-121); ALT ALANINE AMINOTRANSFERASE 21 IU/L (10-60); AST ASPARTATE AMINOTRANSFERASE 20 IU/L (10-42); BILIRUBIN,TOTAL 0.7 mg/dL (0.2-1.0); BUN - BLOOD UREA NITROGEN 18 mg/dL (6-20); CARBON DIOXIDE - CO2 28 mmol/L (21-32); CHLORIDE 104 mmol/L (101-111); CHOL/HDL RATIO 2.3 (<5.0); CHOLESTEROL 180 mg/dL; GFR - MDRD 78 (>89); GLUCOSE 95 mg/dL (70-100); HDL CHOLESTEROL 79 mg/dL; LDL CHOLESTEROL,CALCULATED 85 mg/dL; LDL/HDL RATIO 1.1 (<3.6); POTASSIUM 4.5 mmol/L (3.5-5.0); SODIUM 142 mmol/L (135-145); TOTAL PROTEIN 7.6 g/dL (6.7-8.2); TRIGLYCERIDES 78 mg/dL; VLDL CHOLESTEROL 16 mg/dL
[2022-08-04 18:22] LABS: THYROID STIMULATING HORMONE 2.42 uIU/mL (0.34-5.60)
[2022-08-04 21:38] LABS: ESTIMATED AVERAGE GLUCOSE 100 mg/dL (70-100); HEMOGLOBIN A1c% 5.1 % (4.27-6.07)
== END 2022-08-04 13:30 | disposition home or self-care (01) ==
LOC: LAB.N 13:15
PROVIDERS: ATTEND Registered Nurse
DX: R53.83 Other fatigue (principal); R53.81 Other malaise; K62.5 Hemorrhage of anus and rectum; K62.89 Other specified diseases of anus and rectum; R07.89 Other chest pain
CPT/HCPCS: 36415; 80053; 80061; 83036; 83721; 84153; 84443; 85025